=== PATIENT | male | born 1940 | race African-American/Black ===

== ENCOUNTER 2017-06-25 08:19 | Day surgery (SDC) | payer OTHER, MEDICAID ==
[~2017-06-25 08:19] MED LIST: AK-DILATE 2.5% OPHTH 1 DOSE OP ONE; CYCLOGYL 1% OPHTH 1 DOSE OP ONE; MYDRIACIL OPHTH 1 DOSE AFFEYE ONE
[2017-06-25] MEDS ORDERED: TETRACAINE 0.5% OPHTH 1 DOSE AFFEYE ONE (08:45)
[2017-06-25] MEDS ORDERED: VIGAMOX 0.5% OPHTH 1 DOSE AFFEYE ONE ×4 (08:50→10:48)
[2017-06-25] MEDS ORDERED: PROLENSA OPHTH 1 DOSE AFFEYE ONE (09:01)
[2017-06-25] MEDS ORDERED: ALPHAGAN-P OPHTH 1 DOSE AFFEYE ONE (09:02)
[2017-06-25] MEDS ORDERED: CYCLOGYL 1% OPHTH 1 DOSE OP ONE ×2 (09:03→09:04)
[2017-06-25] MEDS ORDERED: MYDRIACIL OPHTH 1 DOSE AFFEYE ONE (09:03)
[2017-06-25] MEDS ORDERED: AK-DILATE 2.5% OPHTH 1 DOSE OP ONE ×2 (09:03→09:04)
[2017-06-25] MEDS: NS 500 ML IV 500 ML IV ONE (09:30)
[2017-06-25] MEDS ORDERED: BETADINE OPHTH SOLN 5% EACHEYE ONE (10:34)
[2017-06-25] MEDS ORDERED: TETRACAINE HCL AFFEYE ONE (10:34)
[2017-06-25] MEDS ORDERED: KENALOG INJ 40 MG IM ONE (10:40)
[2017-06-25] MEDS ORDERED: DIPRIVAN VIAL ONE (13:42)
[2017-06-25 14:33] VITALS: BP 133/78
== END 2017-06-25 11:15 | disposition home or self-care (01) | DRG 115 ==
LOC: SURG1 08:19
PROVIDERS: ATTEND Ophthalmology
PROC: 08BTXZX Excision of Left Conjunctiva, External Approach, Diagnostic (ICD-10-PCS; principal; 2017-06-25 14:15)
PROC: 08U107Z Supplement of Left Eye with Autologous Tissue Substitute, Open Approach (ICD-10-PCS; principal; 2017-06-25 14:15)
DX: H11.002 Unspecified pterygium of left eye (principal)
CPT/HCPCS: 99100; A4217; J3301; J3490